=== PATIENT | male | born 1975 | race African-American/Black ===

== ENCOUNTER 2016-11-13 15:00 | Emergency (ER) | payer MEDICAID ==
[~2016-11-13] VITALS: Ht 177.8 cm; Wt 62.0 kg
[~2016-11-13 15:00] MED LIST: VIC GT
[2016-11-13] MEDS ORDERED: IBUPROFEN 800MG TABLET PO ONE (16:15)
[2016-11-13] MEDS ORDERED: HYDROCODONE/ACETAMINOPHEN 5/325MG TABLET PO ONE (18:15)
[2016-11-13] MEDS ORDERED: CEFAZOLIN 1000MG PREMIX 50 ML IV ONE (18:30)
[2016-11-13 22:38] VITALS: BP 120/63
== END 2016-11-13 23:28 | disposition short-term general hospital (02) ==
LOC: ER 16:40
DX: S42.402A Unspecified fracture of lower end of left humerus, initial encounter for closed fracture (principal); F12.10 Cannabis abuse, uncomplicated; F17.200 Nicotine dependence, unspecified, uncomplicated; X58.XXXA Exposure to other specified factors, initial encounter; Y93.89 Activity, other specified; Y92.89 Other specified places as the place of occurrence of the external cause; Y99.8 Other external cause status
CPT/HCPCS: 73030; 73060; 73090; 96365; 99285; J0690; Z7610; A4565

== ENCOUNTER 2016-11-19 08:13 | Inpatient (IN) | payer MEDICAID ==
[~2016-11-19] VITALS: Ht 175.3 cm; Wt 61.7 kg
[2016-11-19] MEDS ORDERED: SODIUM CHLORIDE 0.9% 1,000 ML IV ONE (08:44)
[2016-11-19] MEDS ORDERED: LORAZEPAM 2MG/ML CPJ IV STA (08:44)
[2016-11-19 09:10] LABS: EOSINOPHILS % 0.2 % (0.0-5.0); HEMATOCRIT. 38.4 % (42.0-52.0); HEMOGLOBIN. 13.4 g/dL (14.0-18.0); MEAN CORPUSCULAR HEMOGLOBIN 30.7 pg (28.0-32.0); MEAN CORPUSCULAR VOLUME 87.6 fL (80.0-94.0); MEAN PLATELET VOLUME 8.7 fl (7.4-10.4); MONOCYTES % 14.5 % (2.0-8.0); NEUTROPHILS % 61.3 % (40.0-76.0); PLATELET 216 x1000/uL (130-400); RED BLOOD CELL COUNT 4.38 mill/uL (4.7-6.1); RED CELL DISTRIBUTION WIDTH 12.7 % (11.6-14.6)
[2016-11-19 09:17] LABS: INR 1.1; PROTHROMBIN TIME 11.1 sec
[2016-11-19 09:19] LABS: CHLORIDE 104 mEq/L (98-107)
[2016-11-19 09:22] LABS: AMMONIA 36 uMol/L (<32)
[2016-11-19 09:27] LABS: CARBON DIOXIDE 28 mEq/L (21-32); ETHANOL BLOOD < 10 mg/dL
[2016-11-19 09:28] LABS: TROPONIN I < 0.02 ng/mL (0.00-0.04)
[2016-11-19] MEDS ORDERED: POTASSIUM CHLORIDE 20MEQ TABLET SR PO ONE (11:00)
[2016-11-19 11:36] LABS: CLARITY URINE CLEAR (CLEAR); COLOR URINE DARK YELLOW (YELLOW); GLUCOSE URINE NEGATIVE (NEGATIVE); KETONES URINE TRACE (NEGATIVE); LEUKOCYTE ESTERASE URINE NEGATIVE (NEGATIVE); NITRITE URINE NEGATIVE (NEGATIVE); OCCULT BLOOD URINE NEGATIVE (NEGATIVE); PH URINE 6.5 (4.5-8.0); PROTEIN URINE NEGATIVE (NEGATIVE); SPECIFIC GRAVITY URINE 1.033 (1.005-1.030)
[2016-11-19 12:00] LABS: *AMPHETAMINES SCREEN URINE PRESUMTIVE POSITIVE (NEGATIVE); *BARBITURATES SCREEN URINE NEGATIVE (NEGATIVE); *BENZODIAZEPINES SCREEN URINE NEGATIVE (NEGATIVE); *COCAINE SCREEN URINE PRESUMTIVE POSITIVE (NEGATIVE); CANNABINOID URINE SCREEN PRESUMTIVE POSITIVE (NEGATIVE); METHADONE URINE SCREEN NEGATIVE (NEGATIVE); OPIATES URINE SCREEN NEGATIVE (NEGATIVE); PHENCYCLIDINE URINE SCREEN NEGATIVE (NEGATIVE)
[2016-11-19 12:10] VITALS: BP 114/84
[2016-11-19] MEDS: LORAZEPAM 2MG/ML CPJ IV PRN ×2 (13:47→22:40)
[2016-11-19] MEDS ORDERED: DOCUSATE SODIUM 100MG CAPSULE PO PRN (14:15)
[2016-11-19] MEDS ORDERED: IPRATROPIUM/ALBUTEROL 0.5-3(2.5)MG/3ML NEB INH PRN (14:15)
[2016-11-19] MEDS ORDERED: ONDANSETRON HCL 4MG/2ML VIAL IV PRN (14:15)
[2016-11-19] MEDS ORDERED: NA PHOS,M-B/NA PHOS,DI-BA ENEMA 118ML PR PRN (14:15)
[2016-11-19] MEDS ORDERED: DIPHENHYDRAMINE 50MG/ML VIAL IV PRN (14:15)
[2016-11-19] MEDS ORDERED: HYDROCODONE/ACETAMINOPHEN 5/325MG TABLET PO PRN (14:15)
[2016-11-19] MEDS ORDERED: GUAIFENESIN 200MG/10ML SUGAR FREE UDC PO PRN (14:15)
[2016-11-19] MEDS ORDERED: CLONIDINE 0.1MG TABLET PO PRN (14:15)
[2016-11-19] MEDS: ENOXAPARIN 40MG/0.4ML SYR SUBCUT SCH (14:29)
[2016-11-19 15:50] VITALS: BP 132/72
[2016-11-19 20:00] VITALS: BP 95/70
[2016-11-19] MEDS: SODIUM CHLORIDE 0.9% INJ 3ML FLUSH IVF SCH (22:40)
[2016-11-19] MEDS ORDERED: HALOPERIDOL LACTATE 5MG/ML VIAL IM NR (23:45)
[2016-11-20 00:51] VITALS: BP 121/93
[2016-11-20 02:16] LABS: AMMONIA 54 uMol/L (<32)
[2016-11-20] MEDS: SODIUM CHLORIDE 0.9% INJ 3ML FLUSH IVF SCH (06:00)
[2016-11-20 07:05] LABS: HEPATITIS B SURFACE ANTIGEN NEGATIVE
[2016-11-20 07:33] LABS: HEPATITIS B CORE AB IGM NEGATIVE
[2016-11-20 07:34] LABS: HEPATITIS A AB IGM NEGATIVE (NEGATIVE)
[2016-11-20 08:27] VITALS: BP 108/72
[2016-11-20] MEDS: ENOXAPARIN 40MG/0.4ML SYR SUBCUT SCH (09:55)
== END 2016-11-20 10:23 | disposition left against medical advice (07) | DRG 342 ==
LOC: ER 08:25 → ENRESERV 11:17 → 8WST 12:24
PROVIDERS: ADMIT Family Medicine; ATTEND Family Medicine
DX: S42.302A Unspecified fracture of shaft of humerus, left arm, initial encounter for closed fracture (principal); E87.6 Hypokalemia; F12.90 Cannabis use, unspecified, uncomplicated; D63.8 Anemia in other chronic diseases classified elsewhere; Z53.21 Procedure and treatment not carried out due to patient leaving prior to being seen by health care provider; X58.XXXA Exposure to other specified factors, initial encounter; Y93.89 Activity, other specified; Y92.89 Other specified places as the place of occurrence of the external cause; Y99.8 Other external cause status
CPT/HCPCS: 36415; 70450; 71010; 73060; 73080; 73090; 80053; 80305; 80307; 80329; 81001; 82140; 83880; 84484; 85025; 85610; 86705; 86709; 86803; 87340; 93005; 96361; 96374; 99285; A4565; G0482; J1650; J2060; J7030

== ENCOUNTER 2016-11-25 12:41 | Emergency (ER) | payer MEDICAID ==
[~2016-11-25] VITALS: Ht 177.8 cm; Wt 66.0 kg
[2016-11-25] MEDS ORDERED: IBUPROFEN 600MG TABLET PO ONE (14:15)
[2016-11-25] MEDS ORDERED: KETOROLAC 60MG/2ML VIAL IM ONE (14:15)
[2016-11-25 14:56] VITALS: BP 125/60
== END 2016-11-25 15:00 | disposition home or self-care (01) ==
LOC: ER 14:15
DX: S52.352A Displaced comminuted fracture of shaft of radius, left arm, initial encounter for closed fracture (principal); F17.200 Nicotine dependence, unspecified, uncomplicated; F12.90 Cannabis use, unspecified, uncomplicated; X58.XXXA Exposure to other specified factors, initial encounter; Y93.89 Activity, other specified; Y92.89 Other specified places as the place of occurrence of the external cause; Y99.8 Other external cause status
CPT/HCPCS: 29105; 96372; 99283; J1885; Z7610

== ENCOUNTER 2016-12-04 20:31 | Emergency (ER) | payer MEDICAID ==
[~2016-12-04] VITALS: Ht 177.8 cm; Wt 65.9 kg
[2016-12-05] MEDS ORDERED: IBUPROFEN 600MG TABLET PO ONE (00:15)
[2016-12-05 00:32] VITALS: BP 125/77
== END 2016-12-05 01:25 | disposition home or self-care (01) ==
LOC: ER 20:31
DX: M79.622 Pain in left upper arm (principal); Z87.81 Personal history of (healed) traumatic fracture
CPT/HCPCS: 29105; 99283; Z7610; A4565

== ENCOUNTER 2016-12-16 16:44 | Emergency (ER) | payer MEDICAID ==
[~2016-12-16] VITALS: Ht 177.8 cm; Wt 68.0 kg
[2016-12-16 19:35] VITALS: BP 120/84
== END 2016-12-16 21:23 | disposition home or self-care (01) ==
LOC: ER 21:00
DX: S42.302A Unspecified fracture of shaft of humerus, left arm, initial encounter for closed fracture (principal); X58.XXXD Exposure to other specified factors, subsequent encounter; Y93.89 Activity, other specified; Y92.89 Other specified places as the place of occurrence of the external cause; Y99.8 Other external cause status
CPT/HCPCS: 29105; 99283; A4565

== ENCOUNTER 2016-12-28 12:30 | Emergency (ER) | payer MEDICAID ==
[~2016-12-28] VITALS: Ht 170.2 cm; Wt 80.0 kg
[2016-12-28 12:40] VITALS: BP 125/89
== END 2016-12-28 17:30 | disposition left against medical advice (07) ==
LOC: ER 17:28
DX: Z53.21 Procedure and treatment not carried out due to patient leaving prior to being seen by health care provider (principal)

== ENCOUNTER 2018-09-08 04:30 | Emergency (ER) | payer MEDICAID ==
[~2018-09-08] VITALS: Ht 180.3 cm; Wt 75.0 kg
[2018-09-08] MEDS ORDERED: BACITRACIN 15GM TUBE TOP ONE (07:45)
[2018-09-08] MEDS ORDERED: CEPHALEXIN 250MG CAPSULE PO ONE ×2 (07:45→15:45)
[2018-09-08] MEDS ORDERED: TETANUS, DIPHTHERIA, PERTUSSIS VAC/PF 0.5ML (>7YR OLD) IM ONE (07:45)
[2018-09-09 12:10] VITALS: BP 124/62
== END 2018-09-09 12:30 | disposition home or self-care (01) ==
LOC: ER 04:30
DX: T14.8XXA Other injury of unspecified body region, initial encounter (principal); Z59.0 Homelessness; F17.200 Nicotine dependence, unspecified, uncomplicated; W57.XXXA Bitten or stung by nonvenomous insect and other nonvenomous arthropods, initial encounter; Y93.9 Activity, unspecified; Y92.89 Other specified places as the place of occurrence of the external cause
CPT/HCPCS: 90471; 90715; 99284

== ENCOUNTER 2019-02-22 23:16 | Emergency (ER) | payer MEDICAID ==
[~2019-02-22] VITALS: Ht 182.9 cm; Wt 82.0 kg
[2019-02-23 00:39] LABS: BASOPHILS % 0.5 % (0.0-2.0); HEMATOCRIT. 44.6 % (42.0-52.0); HEMOGLOBIN. 15.4 g/dL (14.0-18.0); LYMPHOCYTES % 11.4 % (20.0-50.0); MEAN CORPUSCULAR HEMOGLOBIN 31.1 pg (28.0-32.0); MEAN CORPUSCULAR VOLUME 89.8 fL (80.0-94.0); MEAN PLATELET VOLUME 9.6 fl (7.4-10.4); MONOCYTES % 6.7 % (2.0-8.0); NEUTROPHILS % 81.4 % (40.0-76.0); PLATELET 147 x1000/uL (130-400); RED BLOOD CELL COUNT 4.96 mill/uL (4.7-6.1)
[2019-02-23 00:48] LABS: CHLORIDE 107 mEq/L (98-107)
[2019-02-23 00:52] LABS: ETHANOL BLOOD < 10 mg/dL
[2019-02-23 03:27] LABS: *AMPHETAMINES SCREEN URINE PRESUMTIVE POSITIVE (NEGATIVE); *BARBITURATES SCREEN URINE NEGATIVE (NEGATIVE); *BENZODIAZEPINES SCREEN URINE NEGATIVE (NEGATIVE); *COCAINE SCREEN URINE NEGATIVE (NEGATIVE)
[2019-02-23 03:28] LABS: CANNABINOID URINE SCREEN NEGATIVE (NEGATIVE); METHADONE URINE SCREEN NEGATIVE (NEGATIVE); OPIATES URINE SCREEN NEGATIVE (NEGATIVE); PHENCYCLIDINE URINE SCREEN NEGATIVE (NEGATIVE)
[2019-02-23 07:10] VITALS: BP 127/67
== END 2019-02-23 07:40 | disposition home or self-care (01) ==
LOC: ER 23:16
DX: F20.9 Schizophrenia, unspecified (principal); F15.10 Other stimulant abuse, uncomplicated; I10 Essential (primary) hypertension; F12.10 Cannabis abuse, uncomplicated
CPT/HCPCS: 36415; 80305; 80307; 80320; 80329; 99283; G0480

== ENCOUNTER 2019-03-16 20:46 | Emergency (ER) | payer MEDICAID ==
[~2019-03-16] VITALS: Ht 167.6 cm; Wt 61.0 kg
[2019-03-16 20:50] VITALS: BP 108/76
== END 2019-03-17 01:24 | disposition left against medical advice (07) ==
LOC: ER 20:46
DX: Z53.21 Procedure and treatment not carried out due to patient leaving prior to being seen by health care provider (principal); F20.9 Schizophrenia, unspecified; F17.200 Nicotine dependence, unspecified, uncomplicated

== ENCOUNTER 2019-05-03 17:24 | Emergency (ER) | payer MEDICAID | END 2019-05-03 18:29 | disposition left against medical advice (07) | LOC: ER 17:24 | DX: Z53.21 Procedure and treatment not carried out due to patient leaving prior to being seen by health care provider (principal) ==

== ENCOUNTER 2019-05-03 22:31 | Emergency (ER) | payer MEDICAID ==
[~2019-05-03] VITALS: Ht 177.8 cm; Wt 77.2 kg
[2019-05-04 04:52] VITALS: BP 120/70
== END 2019-05-04 04:53 | disposition home or self-care (01) ==
LOC: ER 22:42
DX: J06.9 Acute upper respiratory infection, unspecified (principal); F17.290 Nicotine dependence, other tobacco product, uncomplicated; F12.10 Cannabis abuse, uncomplicated
CPT/HCPCS: 99282

== ENCOUNTER 2019-05-04 22:32 | Emergency (ER) | payer MEDICAID ==
[~2019-05-04] VITALS: Ht 177.8 cm; Wt 77.0 kg
[2019-05-05 14:50] VITALS: BP 126/85
== END 2019-05-05 14:45 | disposition home or self-care (01) ==
LOC: ER 22:32
DX: Z76.0 Encounter for issue of repeat prescription (principal); F41.9 Anxiety disorder, unspecified; F20.9 Schizophrenia, unspecified; F17.200 Nicotine dependence, unspecified, uncomplicated
CPT/HCPCS: 99283

== ENCOUNTER 2019-09-01 09:14 | Emergency (ER) | payer MEDICAID ==
[~2019-09-01] VITALS: Ht 177.8 cm; Wt 84.0 kg
[2019-09-01] MEDS ORDERED: SODIUM CHLORIDE 0.9% 1,000 ML IV ONE (10:00)
[2019-09-01 10:25] LABS: BASOPHILS % 0.4 % (0.0-2.0); HEMATOCRIT. 44.5 % (42.0-52.0); HEMOGLOBIN. 15.3 g/dL (14.0-18.0); LYMPHOCYTES % 9.5 % (20.0-50.0); MEAN CORPUSCULAR HEMOGLOBIN 30.7 pg (28.0-32.0); MEAN CORPUSCULAR VOLUME 89.1 fL (80.0-94.0); MEAN PLATELET VOLUME 9.1 fl (7.4-10.4); MONOCYTES % 5.5 % (2.0-8.0); NEUTROPHILS % 84.6 % (40.0-76.0); PLATELET 181 x1000/uL (130-400); RED BLOOD CELL COUNT 4.99 mill/uL (4.7-6.1); RED CELL DISTRIBUTION WIDTH 13.6 % (11.6-14.6)
[2019-09-01 10:32] LABS: CHLORIDE 106 mEq/L (98-107)
[2019-09-01 10:37] LABS: ETHANOL BLOOD < 10 mg/dL
[2019-09-01 11:30] VITALS: BP 131/77
[2019-09-01 11:35] LABS: CLARITY URINE CLEAR (CLEAR); COLOR URINE YELLOW (YELLOW); KETONES URINE TRACE (NEGATIVE); LEUKOCYTE ESTERASE URINE NEGATIVE (NEGATIVE); NITRITE URINE NEGATIVE (NEGATIVE); OCCULT BLOOD URINE NEGATIVE (NEGATIVE); PROTEIN URINE TRACE (NEGATIVE); SPECIFIC GRAVITY URINE 1.018 (1.005-1.030)
[2019-09-01 11:55] LABS: *AMPHETAMINES SCREEN URINE PRESUMTIVE POSITIVE (NEGATIVE); *BARBITURATES SCREEN URINE NEGATIVE (NEGATIVE); *BENZODIAZEPINES SCREEN URINE NEGATIVE (NEGATIVE); *COCAINE SCREEN URINE NEGATIVE (NEGATIVE); METHADONE URINE SCREEN NEGATIVE (NEGATIVE); OPIATES URINE SCREEN NEGATIVE (NEGATIVE)
[2019-09-01 11:56] LABS: CANNABINOID URINE SCREEN PRESUMTIVE POSITIVE (NEGATIVE); PHENCYCLIDINE URINE SCREEN NEGATIVE (NEGATIVE)
== END 2019-09-01 12:00 | disposition home or self-care (01) ==
LOC: ER 09:20
DX: F41.9 Anxiety disorder, unspecified (principal); F15.10 Other stimulant abuse, uncomplicated; F16.10 Hallucinogen abuse, uncomplicated; F20.9 Schizophrenia, unspecified; Z59.0 Homelessness
CPT/HCPCS: 36415; 80053; 80305; 80307; 80320; 80329; 81003; 85025; 93005; 99284; J7030; G0480

== ENCOUNTER 2022-10-08 20:10 | Emergency (ER) | payer MEDICAID ==
[~2022-10-08] VITALS: Ht 182.9 cm; Wt 73.0 kg
[2022-10-08] MEDS ORDERED: LORAZEPAM 2MG/ML CPJ IV STA (20:28)
[2022-10-08] MEDS ORDERED: SODIUM CHLORIDE 0.9% 1,000 ML IV ONE (20:30)
[2022-10-08 20:51] LABS: HEMATOCRIT. 44.5 % (42.0-52.0); HEMOGLOBIN. 15.5 g/dL (14.0-18.0); MEAN CORPUSCULAR HEMOGLOBIN 31.1 pg (28.0-32.0); MEAN CORPUSCULAR VOLUME 89.2 fL (80.0-94.0); MEAN PLATELET VOLUME 9.6 fl (7.4-10.4); PLATELET 188 x1000/uL (130-400); RED BLOOD CELL COUNT 4.98 mill/uL (4.7-6.1); RED CELL DISTRIBUTION WIDTH 12.8 % (11.6-14.6)
[2022-10-08 21:07] LABS: CHLORIDE 108 mEq/L (98-107)
[2022-10-08 21:14] LABS: ETHANOL BLOOD < 10 mg/dL
[2022-10-08 21:39] LABS: PLATELET ESTIMATE NORMAL
[2022-10-08 21:46] LABS: CLARITY URINE CLEAR (CLEAR); COLOR URINE YELLOW (YELLOW); KETONES URINE 1+ (NEGATIVE); LEUKOCYTE ESTERASE URINE NEGATIVE (NEGATIVE); NITRITE URINE NEGATIVE (NEGATIVE); OCCULT BLOOD URINE NEGATIVE (NEGATIVE); PH URINE 6.5 (4.5-8.0); PROTEIN URINE 1+ (NEGATIVE); SPECIFIC GRAVITY URINE 1.024 (1.005-1.030)
[2022-10-08 22:00] VITALS: BP 131/75
[2022-10-08 22:03] LABS: *AMPHETAMINES SCREEN URINE PRESUMTIVE POSITIVE (NEGATIVE); *BARBITURATES SCREEN URINE NEGATIVE (NEGATIVE); *BENZODIAZEPINES SCREEN URINE NEGATIVE (NEGATIVE); *COCAINE SCREEN URINE NEGATIVE (NEGATIVE); CANNABINOID URINE SCREEN PRESUMTIVE POSITIVE (NEGATIVE); METHADONE URINE SCREEN NEGATIVE (NEGATIVE); OPIATES URINE SCREEN NEGATIVE (NEGATIVE); PHENCYCLIDINE URINE SCREEN NEGATIVE (NEGATIVE)
== END 2022-10-09 14:04 | disposition home or self-care (01) ==
LOC: ER 20:21
DX: F22 Delusional disorders (principal); F15.10 Other stimulant abuse, uncomplicated; F41.9 Anxiety disorder, unspecified; F20.9 Schizophrenia, unspecified; F12.10 Cannabis abuse, uncomplicated
CPT/HCPCS: 36415; 80053; 80305; 80307; 80320; 80329; 81003; 82140; 82962; 83690; 85025; 96374; 99283; J2060; J7030; Z7610; G0480

== ENCOUNTER 2022-10-25 19:32 | Emergency (ER) | payer MEDICAID, OTHER ==
[~2022-10-25] VITALS: Ht 177.8 cm; Wt 84.0 kg
[2022-10-25 19:37] VITALS: BP 114/67
[2022-10-25 20:27] LABS: BASOPHILS % 0.8 % (0.0-2.0); EOSINOPHILS % 1.3 % (0.0-5.0); HEMATOCRIT. 43.2 % (42.0-52.0); HEMOGLOBIN. 14.9 g/dL (14.0-18.0); MEAN CORPUSCULAR HEMOGLOBIN 31.4 pg (28.0-32.0); MEAN PLATELET VOLUME 9.8 fl (7.4-10.4); NEUTROPHILS % 57.9 % (40.0-76.0); PLATELET 162 x1000/uL (130-400); RED BLOOD CELL COUNT 4.75 mill/uL (4.7-6.1); RED CELL DISTRIBUTION WIDTH 12.8 % (11.6-14.6)
[2022-10-25 20:33] LABS: CHLORIDE 108 mEq/L (98-107)
[2022-10-25 20:40] LABS: ETHANOL BLOOD < 10 mg/dL
== END 2022-10-26 00:58 | disposition home or self-care (01) ==
LOC: ER 19:32
DX: R44.0 Auditory hallucinations (principal); F41.9 Anxiety disorder, unspecified; F19.90 Other psychoactive substance use, unspecified, uncomplicated; Z59.00 Homelessness unspecified
CPT/HCPCS: 36415; 80053; 80307; 80320; 80329; 85025; 99283; G0480